=== PATIENT | male | born 1970 | race African-American/Black ===

== ENCOUNTER 2017-04-25 10:04 | Emergency (ER) | payer OTHER, MEDICARE ==
[~2017-04-25 10:04] MED LIST: BACTRIM DS TAB1 EACH PO; IBUPROFEN800 M1 PO; KEFLEX500 M1 PO
[2017-04-25 10:19] VITALS: BP 100/67
--- NOTE | 2017-04-25 11:08 | ED GI/GU/ABDOMINAL COMPLAINT ---
History of Present Illness General Chief Complaint: Male Genitourinary Problems Stated Complaint: "PER PT BURNING WHEN I PEE" Source: patient, old records Exam Limitations: no limitations Vital Signs & Intake/Output Vital Signs & Intake/Output Vital Signs Date Time Temp Pulse Resp B/P B/P Pulse O2 O2 Flow FiO2 Mean Ox Delivery Rate 04/25 1019 99.0 81 16 100/67 98 Room Air Room Air Allergies Coded Allergies: Penicillins (UNKNOWN 08/03/16) Reconcile Medications Cephalexin (Keflex) 500 MG CAPSULE 1 TAB PO Q6 FOOT ULCER Ibuprofen 800 MG TABLET 1 TAB PO TID PAIN Sulfamethoxazole/Trimethoprim (Bactrim Ds Tablet) 1 EACH TABLET 1 TAB PO BID FOOT ULCER Triage Note: PT TO TRIAGE WITH BURNING WITH URINATION AND WHITE DISCHARGE FOR 2 DAYS. DENIES FEVERS. WHEN ASKED ABOUT SEXUAL INCOUNTERS, HE STATES "I MUST HAVE GOTTEN IT FROM SOMEBODY" Triage Nurses Notes Reviewed? yes HPI: Patient presents with dysuria since yesterday evening and a white penile discharge that started today. There is no back pain. There are no fevers or chills. There is no hematuria. The pain is only present when he urinates. Patient states that it feels like he is peeing razor blades. There is no radiation of the pain. While urinating the pain is 10 out of 10. The pain is 0 out of 10 when he is not urinating. Patient has had unprotected sex lately. Past History Travel History Traveled to [place] past 21 day No Medical History Any Pertinent Medical History? 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 No Review of Systems Review of Systems Constitutional: Reports: no symptoms. Respiratory: Reports: no symptoms. Cardiovascular: Reports: no symptoms. GI: Reports: no symptoms. Genitourinary: Reports: see HPI, discharge, dysuria. Musculoskeletal: Reports: no symptoms. Neurological/Psychological: Reports: no symptoms. Immunologic/Allergic: Reports: no symptoms. Physical Exam Physical Exam General Appearance: well developed/nourished, alert, awake, anxious Eyes: Bilateral: PERRL, EOMI. Respiratory: normal breath sounds, chest non-tender, no respiratory distress, lungs clear Cardiovascular: regular rate/rhythm, normal peripheral pulses Gastrointestinal: normal bowel sounds, soft, non-tender Back: NO CVA TENDERNESS Neurologic/Psych: no motor/sensory deficits, awake, alert, oriented x 3, normal gait, normal mood/affect Core Measures ACS in differential dx? No Severe Sepsis Present: No Septic Shock Present: No Progress Differential Diagnosis: urethritis, UTI/pyelo Plan of Care: Orders Procedure Date/time Status CULTURE,URINE 04/25 1023 Active CHLAMYDIA-GC DNA PROBE 04/25 1023 Active URINALYSIS 04/25 1023 Complete Current Medications Sig/Aysha Start time Last Medication Dose Stop Time Status Admin Ceftriaxone Sodium 250 MG ONCE ONE 04/25 1115 CAN 04/25 (Rocephin) 04/25 1116 1120 Laboratory Tests 04/25/17 1036: Urine Color YEL, Urine Clarity CLEAR, Urine pH 6.5, Ur Specific Burke 1.020, Urine Protein NEG, Urine Ketones NEG, Urine Nitrite NEG, Urine Bilirubin NEG, Urine Urobilinogen 0.2, Ur Leukocyte Esterase NEG, Ur Microscopic EXAM NOT REQUIRED, Urine Hemoglobin NEG, Urine Glucose NEG Microbiology 04/25 1036 URINE ROUT: Urine Culture - RECD 04/25 1036 URINE ROUT: GC DNA Probe - RECD 04/25 1036 URINE ROUT: Chlamydia DNA Probe (ROLANDO) - RECD Initial ED EKG: none Comments: Discussed with Mr. Clinton the importance of safe sex practices including the use of condoms. HIV risk factors discussed. Patient will ask his partner to be evaluated as well. Departure Departure Disposition: HOME OR SELF CARE Condition: Stable Clinical Impression Primary Impression: STD (male) Referrals: PATIENT HAS NO PRIMARY CARE DR (PCP/Family) Additional Instructions: Use a condom every time you have sex. He has been treated just in case it did contract a sexually transmitted disease. The tests are being run and the results will be available on Wednesday. Please call Dr. Guardado at [phone] to obtain the results. Your partner should be evaluated and potentially treated. Return for any concerns. Departure Forms: Customer Survey General Discharge Information
== END 2017-04-25 11:22 ==
LOC: ERH 10:04
DX: A64 Unspecified sexually transmitted disease (principal)
CPT/HCPCS: 81003; 87086; 87491; 87591; 96372; J0456; J0696